=== PATIENT | male | born 1965 | race Two or more races ===

== ENCOUNTER 2024-12-18 22:37 | Emergency (ER) | payer OTHER ==
[~2024-12-18] VITALS: Ht 190.5 cm; Wt 82.8 kg
[2024-12-18 22:39] VITALS: BP 131/95; PULSE 118; RESP 20; TEMP 97.9; O2SAT 97
--- NOTE | 2024-12-18 23:00 | ED.PDOC ---
History of Present Illness HPI Comments This is a 59 year-old male, accompanied by granddaughter, with a PMHX of DM, HTN, and CHF, who presents to the ED with a chief complaint of high blood sugar levels as of today. Patient reports blood glucose levels of 545 and 534. Patient states that he stopped taking insulin, metformin, and glycoside for X4 days while away from home. Patient reports a low blood glucose level this morning, but rise in levels after drinking orange juice and eating a sucker. Patient states additional L face pain with associated elevated levels. Patient has no further complaints. Patient denies N/V, dizziness, LOC, fatigue, or general weakness. REVIEW OF SYSTEMS:(+) L Face Pain, No fever, no chills, or fatigue HEENT: No sore throat, no earache, no congestion, no neck pain. Cardiac: No chest pain. No palpitations. Lungs: No shortness of breath, no cough. GI: No nausea, no vomiting, no diarrhea, no constipation, no abdominal pain : No dysuria, frequency, or urgency. No hematuria. Musculoskeletal: No joint pain , no joint swelling, no extremity edema. Skin: No rash, no itching. Neuro: No headache, no dizziness, no weakness EXAM: General: Awake, alert and oriented. No acute distress. Skin: Skin in warm, dry and intact. Appropriate color for ethnicity. HEENT: The head is normocephalic and atraumatic. Conjunctivae are clear without exudates or hemorrhage. Sclera is non-icteric. EOM are intact. No signs of nystagmus. Eyelids are normal in appearance without swelling or lesions. Oral mucosa is pink and moist Neck: The neck is supple with normal range of motion. No JVD. Cardiac: (+) Tachycardic. No murmurs, gallops, or rubs are auscultated. Respiratory: No signs of respiratory distress. Lung sounds are clear in all lobes bilaterally without rales, rhonchi, or wheezes. Abdominal: Abdomen is soft, non-tender without distention. Bowel sounds are present and normoactive in all four quadrants. Extremities: Upper and lower extremities are atraumatic in appearance without deformity or edema. Neurological: The patient is awake, alert and oriented to person, place, and time with normal speech. Speech is clear. There is no facial asymmetry. Psychiatric: Appropriate mood and affect. Good judgement and insight. Chief Complaint: Hyperglycemia Time Seen by MD: 23:00 Reviewed Notes: Medications, Allergies Allergies: Coded Allergies: NO KNOWN ALLERGIES (Unverified , 12/18/24) Information Source: Patient Mode of Arrival: Ambulatory Duration: Since onset Past Medical History PAST MEDICAL HISTORY: AFIB, CHF, DM, HTN Surgical History: Denies all surgeries Family History Family History: Reviewed,noncontributory to illness, No family hx of Cancer, No family hx of DM, No family hx of Heart roel, No family hx of HTN, No family hx ofKidney roel, No family hx of Liver roel, No family hx of Lung roel, No family hx of Stroke Social History Smoker: Non-Smoker Alcohol: Denies ETOH Use Drugs: Denies Drug Use Lives In: Home Was a procedure done? Was a procedure done?: No Differential Dx Considerations may include: Hyperglycemia, uncontrolled diabetes, DKA, HHS, other X-Ray, Labs, Meds, VS Vital Signs Date Time Temp Pulse Resp B/P (MAP) Pulse Ox O2 Delivery O2 Flow Rate FiO2 12/18/24 22:39 97.9 118 20 131/95 97 97.9 Lab Test 12/19/24 02:38 12/18/24 23:21 12/18/24 23:17 Range/Units POC Glucose 421 *H 70-106 mg/dl Blood Gas Specimen Type Arterial Blood Gas Sample Site Left radial Blood Gas Patient Temperature 37.0 Arterial Blood Date Drawn [id number] Arterial Blood pH 7.421 7.350-7.450 Arterial Blood Partial Pressure CO2 37.3 35.0-48.0 mmHg Arterial Blood Partial Pressure O2 82.2 L 83.0-108.0 mmHg Arterial Blood HCO3 23.7 21.0-28.0 mmol/L Arterial Blood Oxygen Saturation 96.3 94.0-98.0 % Arterial Blood Base Excess -0.4 -2.0-3.0 mmol/L Arterial Blood Oxyhemoglobin 89.2 L 94.0-98.0 % Arterial Blood Carboxyhemoglobin 6.8 H 0.5-1.5 % Arterial Blood Methemoglobin 0.6 0.0-1.5 % Baudilio Test Yes Blood Gas Total Hemoglobin 15.10 13.5-17.5 g/dL Blood Gas Liter Flow 0.00 Blood Gas Modality Room air Blood Gas Spontaneous Rate 20 FiO2 % 21.0 Specimen Drawn By Herminia santo rt White Blood Count 8.3 4.4-10.8 10^3/uL Red Blood Count 4.90 4.5-5.90 10^6/uL Hemoglobin 14.5 13.5-17.5 g/dL Hematocrit 41.9 41.0-53.0 % Mean Corpuscular Volume 85.6 80.0-100.0 fL Mean Corpuscular Hemoglobin 29.6 28.0-32.0 pg Mean Corpuscular Hemoglobin Concent 34.6 32.0-36.0 g/dL Red Cell Distribution Width 13.7 11.8-14.3 % Platelet Count 317 140-450 10^3/uL Mean Platelet Volume 7.9 6.9-10.8 fL Neutrophils (%) (Auto) 57.8 37.0-80.0 % Lymphocytes (%) (Auto) 33.6 10.0-50.0 % Monocytes (%) (Auto) 7.1 0.0-12.0 % Eosinophils (%) (Auto) 1.0 0.0-7.0 % Basophils (%) (Auto) 0.5 0.0-2.0 % Neutrophils # (Auto) 4.8 1.6-8.6 10 ^3/uL Lymphocytes # (Auto) 2.8 0.4-5.4 10 ^3/uL Monocytes # (Auto) 0.6 0-1.3 10 ^3/uL Eosinophils # (Auto) 0.1 0-0.8 10 ^3/uL Basophils # (Auto) 0 0-0.2 10 ^3/uL Nucleated Red Blood Cells 0.1 % Sodium Level 135 L 136-145 mmol/L Potassium Level 4.7 3.5-5.1 mmol/L Chloride Level 101 98-107 mmol/L Carbon Dioxide Level 26 20-31 mmol/L Anion Gap 8 5-15 Blood Urea Nitrogen 14 9-23 mg/dL Creatinine 1.77 H 0.700-1.30 mg/dL Glomerular Filtration Rate Calc 44 >90 mL/min BUN/Creatinine Ratio 7.9 L 10.0-20.0 Serum Glucose 544 *H 74-106 mg/dL Calcium Level 9.2 8.7-10.4 mg/dL Magnesium Level 1.8 1.6-2.6 mg/dL Total Bilirubin 0.3 0.2-1.0 mg/dL Aspartate Amino Transferase (AST) 14 13-40 U/L Alanine Aminotransferase (ALT) 18 7-40 U/L Alkaline Phosphatase 90 46-116 U/L Total Protein 5.9 5.7-8.2 g/dL Albumin 3.9 3.2-4.8 g/dL Beta-Hydroxybutyric Acid 0.089 < 0.4 mmol/L Time of 1ST Reevaluation: 23:29 Reevaluation 1ST: Unchanged Patient Education/Counseling: Need For Follow Up Family Education/Counseling: Need For Follow Up SEPSIS Sepsis Screen Date sepsis recognized/suspect: Dec 18, 2024 Time Sepsis recognized/suspect: 2238 Recent Procedure: No On Antibiotic Therapy: No Respiratory Rate >20: No Heart Rate >90: Yes Temp<36 C (96.8 F) or >38.3 C: No SBP <90 or MAP <65 mmHG: No New Acute Mental Status Change: No Is the patient on CPAP, BIPAP,: No Physician Orders Abg W/ Co-Ox (12/18/24 22:55) Urinalysis (12/18/24 22:55) Vital Signs Date Time Temp Pulse Resp B/P (MAP) Pulse Ox O2 Delivery O2 Flow Rate FiO2 12/18/24 22:39 97.9 118 20 131/95 97 97.9 Laboratory Tests Test 12/18/24 23:17 White Blood Count 8.3 10^3/uL (4.4-10.8) Departure 1 Departure Time of Disposition: 02:45 Impression: Primary Impression: Eloped from emergency department Additional Impression: Hyperglycemia Disposition: 07 LEFT AWOL/ELOPED Condition: Other Comments Patient was seen and evaluated in the emergency department. Discussed plan of care with the patient. He eloped from the emergency department prior to completing treatment. Critical Care Note Critical Care Time?: No Stability Stability form required: No Heart Score Heart Score: Heart Score Response (Comments) Value History N/A 0 EKG N/A 0 Age N/A 0 Risk Factors N/A 0 Troponin N/A 0 Total 0 I personally scribed for NIKKI MCPHERSON MD ([email or web address]) on 12/18/24 at 23:00. Electronically submitted by An Arnett ([employer]). I personally scribed for NIKKI MCPHERSON MD ([email or web address]) on 12/18/24 at 23:33. Electronically submitted by An Arnett ([email or web address]). NIKKI MCPHERSON MD Dec 18, 2024 23:00
[2024-12-18] MEDS: SODIUM CHLORIDE 0.9% 1,000 ML IV ONE (23:14)
[2024-12-18 23:26] LABS: Base Excess -0.4 mmol/L (-2.0-3.0)
[2024-12-18 23:32] LABS: Hematocrit 41.9 % (41.0-53.0); Hemoglobin 14.5 g/dL (13.5-17.5); Mean Corpuscular Hemoglobin 29.6 pg (28.0-32.0); Mean Corpuscular Volume 85.6 fL (80.0-100.0); Nucleated Red Blood Cells % 0.1 %
[2024-12-18 23:44] LABS: Alanine Aminotransferase 18 U/L (7-40); Albumin 3.9 g/dL (3.2-4.8); Alkaline Phosphatase 90 U/L (46-116); Anion Gap 8 (5-15); BUN/Creatinine Ratio 7.9 (10.0-20.0); Bilirubin, Total 0.3 mg/dL (0.2-1.0); Blood Urea Nitrogen 14 mg/dL (9-23); Calcium 9.2 mg/dL (8.7-10.4); Carbon Dioxide 26 mmol/L (20-31); Chloride 101 mmol/L (98-107); Magnesium 1.8 mg/dL (1.6-2.6); Potassium 4.7 mmol/L (3.5-5.1); Total Protein 5.9 g/dL (5.7-8.2)
[2024-12-18 23:47] LABS: Sodium 135 mmol/L (136-145)
[2024-12-18 23:53] LABS: Glucose 544 mg/dL (74-106)
== END 2024-12-19 02:42 | disposition left against medical advice (07) ==
LOC: ER 22:45
DX: E11.65 Type 2 diabetes mellitus with hyperglycemia (principal); I11.0 Hypertensive heart disease with heart failure; I50.9 Heart failure, unspecified; I48.91 Unspecified atrial fibrillation
CPT/HCPCS: 36415; 36600; 80053; 82010; 82805; 82947; 82962; 83735; 85025